=== PATIENT | male | born 1975 | race Caucasian/White ===

== ENCOUNTER 2021-05-04 11:24 | Emergency (ER) | payer OTHER ==
[2021-05-04] MEDS ORDERED: ACETAMINOPHEN TAB 325 MG TAB PO STA (12:00)
--- NOTE | 2021-05-04 12:14 | XR ---
EXAMINATION TYPE: XR chest 2V DATE OF EXAM: 05/04/2021 COMPARISON: None HISTORY: Cough TECHNIQUE: Frontal and lateral views of the chest are obtained. FINDINGS: There are several small partially consolidative opacities in the lung bases and within the right middle lobe. The heart size is normal and the pulmonary vasculature is not congested. There is no pneumothorax or pleural effusion. The osseous structures are intact IMPRESSION: Suggestion of small multifocal infiltrates in the right middle lobe and lung bases. Clin ical correlation short-term follow-up to resolution is recommended.
--- NOTE | 2021-05-04 12:57 | ED ---
URI HPI - General Chief Complaint: Upper Respiratory Infection Stated Complaint: Congestion Time Seen by Provider: 05/04/21 11:40 Source: patient, RN notes reviewed Mode of arrival: ambulatory Limitations: no limitations - History of Present Illness Initial Comments: This a 46-year-old male presents emergency Department chief complaint of cough congestion fever. Patient states symptoms started a week ago at worse last night. Patient states he had severe coughing. Patient states that he's had multiple sick contacts. Patient has no significant past focal history including hypertension hyperlipidemia diabetes COPD asthma. - Related Data Previous Rx's Medication Instructions Recorded Benzonatate [Tessalon Perles] 100 mg PO TID PRN #15 capsule 05/04/21 Allergies Allergy/AdvReac Type Severity Reaction Status Date / Time No Known Allergies Allergy Verified 05/04/21 11:37 Review of Systems ROS Statement: Those systems with pertinent positive or pertinent negative responses have been documented in the HPI. ROS Other: All systems not noted in ROS Statement are negative. Past Medical History Past Medical History: No Reported History Past Surgical History: No Surgical Hx Reported Past Psychological History: No Psychological Hx Reported Smoking Status: Former smoker Past Alcohol Use History: None Reported Past Drug Use History: Marijuana General Exam Limitations: no limitations General appearance: alert, in no apparent distress Head exam: Present: atraumatic, normocephalic, normal inspection Eye exam: Present: normal appearance, PERRL, EOMI. Absent: scleral icterus, conjunctival injection, periorbital swelling ENT exam: Present: normal exam, mucous membranes moist Neck exam: Present: normal inspection. Absent: tenderness, meningismus, lymphadenopathy Respiratory exam: Present: normal lung sounds bilaterally. Absent: respiratory distress, wheezes, rales, rhonchi, stridor Cardiovascular Exam: Present: regular rate, normal rhythm, normal heart sounds. Absent: systolic murmur, diastolic murmur, rubs, gallop, clicks Course Vital Signs 05/04/21 05/04/21 11:34 12:37 Temperature 100.1 F H Pulse Rate 90 Respiratory 18 16 Rate Medical Decision Making - Medical Decision Making Vitals are stable, x-ray shows evidence of multifocal pneumonia consistent with COVID-19. Patient is positive for COVID-19 did receive monoclonal antibodies we discharged in stable condition. - Lab Data Lab Results 05/04/21 Range/Units 12:28 Coronavirus (PCR) Detected A (Not Detectd) Disposition Clinical Impression: COVID-19 Disposition: HOME SELF-CARE Condition: Stable Instructions (If sedation given, give patient instructions): Coronavirus Disease 2019 (COVID-19) Additional Instructions: Please return to the Emergency Department if symptoms worsen or any other concerns. Prescriptions: Benzonatate [Tessalon Perles] 100 mg PO TID PRN #15 capsule PRN Reason: Cough Is patient prescribed a controlled substance at d/c from ED?: No Referrals: Mushtaq Wasserman MD [Primary Care Provider] - 1-2 days Time of Disposition: 12:57
[2021-05-04] MEDS ORDERED: SODIUM CHLORIDE 0.9% 50 ML IVPB ONE (13:30)
[2021-05-04] MEDS ORDERED: BAMLANIVIMAB (EUA) 700 MG, ETESEVIMAB (EUA) 1,400 MG in SODIUM CHLORIDE 0.9% 50 ML IVPB ONE (13:45)
[2021-05-04 15:30] VITALS: RESP 18
[2021-05-04 15:31] VITALS: BP 128/80; PULSE 89; TEMP 99.2
== END 2021-05-04 15:02 | disposition home or self-care (01) ==
LOC: EC 11:24
DX: U07.1 COVID-19 (principal); Z87.891 Personal history of nicotine dependence
CPT/HCPCS: 99283 ×2; 96365; 87635; 71046; M0243; J3490